=== PATIENT | female | born 2000 | race Caucasian/White ===

== ENCOUNTER 2021-09-19 11:38 | Outpatient (REF) | payer OTHER, SELFPAY ==
[2021-09-19 17:08] LABS: COVID-19 Test Negative (Negative)
== END 2021-09-19 11:39 | disposition home or self-care (01) ==
LOC: HO.LAB 11:38
PROVIDERS: Visit Provider Internal Medicine
DX: Z20.822 Contact with and (suspected) exposure to COVID-19 (principal)
CPT/HCPCS: 36415; 87635; C9803

== ENCOUNTER 2023-01-24 09:15 | Emergency (ER) | payer OTHER, SELFPAY ==
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
[2023-01-24 09:34] VITALS: BP 114/70; BP 131/85; PULSE 110; PULSE 96; RESP 16; TEMP 37; O2SAT 98; BMI 31.1
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
[2023-01-24] MEDS: Acetaminophen 325 MG TABLET 975 MG PO (10:04)
[2023-01-24 10:23] LABS: UPreg QC Valid YES; Urine Pregnancy NEGATIVE (NEGATIVE)
[2023-01-24] MEDS: Ibuprofen 600 MG TABLET PO (10:25)
== END 2023-01-24 11:25 | disposition home or self-care (01) ==
PROVIDERS: Registered Nurse Emergency; Emergency Provider Emergency Medicine
DX: S80.02XA Contusion of left knee, initial encounter (principal); V43.52XA Car driver injured in collision with other type car in traffic accident, initial encounter; Y93.89 Activity, other specified; Y92.414 Local residential or business street as the place of occurrence of the external cause; Y99.9 Unspecified external cause status
CPT/HCPCS: 73564; 81025; 99283; 99284